=== PATIENT | female | born 1955 | race African-American/Black ===

== ENCOUNTER 2021-02-07 05:36 | Inpatient (IN) ==
[2021-02-02 15:41] LABS: Basophils # 0.1 10*3/uL (0.0-0.2); Basophils % 0.5 % (0.0-0.8); Eosinophils # 0.1 10*3/uL (0.0-0.87); Eosinophils % 0.6 % (0.00-10.9); Hematocrit 42.3 VOL% (35.7-47.0); Hemoglobin 13.7 GM/DL (12.0-16.0); Immature Granulocytes % 0.4 %; Immature Granulocytes Absolute 0.04 #; Lymphocytes # 1.3 10*3/uL (1.4-4.0); Lymphocytes % 12.4 % (21.3-54.2); Mean Corpuscular HGB Conc 32.4 GM/DL (32-36); Mean Corpuscular Volume 83.9 FL (87-102); Mean Platelet Volume 11.4 FL (9.6-12.0); Monocytes % 7.4 % (1.7-12.7); Neutrophils % 78.7 % (38.7-73.9); Platelet Count 265 T/CUMM (130-400); Red Blood Count 5.04 MC/CUMM (3.8-5.5); Red Cell Distribution Width 14.6 % (9.3-17.3); White Blood Count 10.7 T/CUMM (4-12)
[2021-02-02 15:45] LABS: Albumin 3.9 G/DL (3.4-5.0); Bilirubin,Total 0.8 MG/DL (0.20-1.00); Calcium 10.2 MG/DL (8.5-10.1); Osmolality,Calculated 277.5 MOS/KG (273-304); Potassium 3.7 MMOL/L (3.5-5.1); Total Protein 7.9 G/DL (6.4-8.2)
[2021-02-02 15:52] LABS: PT Patient Result 10.8 SECS (10.5-12.0); Partial Thromboplastin Time 26.2 SECS (23.9-33.8)
[2021-02-02 16:47] LABS: Bilirubin,Urine Negative (Negative); Blood, Urine Negative (Negative); Glucose,Urine (UA) Negative (Negative); Hyaline Casts,Urine 7 /LPF (0-3); Ketones,Urine Negative (Negative); Mucus,Urine Occasional /LPF (Occasional); Nitrite,Urine Negative (Negative); Protein,Urine Negative; RBC,Urine 1 /HPF (0-4); Squamous Epithelial Cell,Urine Occasional /HPF (0-10); Urine Appearance CLEAR (Clear); Urine Color Yellow (Yellow); Urine Specific Gravity 1.013 (1.001-1.035); Urine Urobilinogen < 2.0 EU/DL (0.2-1.0)
[2021-02-07] MEDS ORDERED: VANCOMYCIN INJ 1,000 MG in SODIUM CHLORIDE 0.9% 250 ML IV ONE (06:00)
[2021-02-07] MEDS ORDERED: FAMOTIDINE 20 MG TABLET PO ONE (06:33)
[2021-02-07] MEDS ORDERED: ACETAMINOPHEN 500 MG TABLET PO ONE ×2 (06:33→06:45)
[2021-02-07] MEDS ORDERED: GABAPENTIN 400 MG CAPSULE PO ONE ×2 (06:33→06:45)
[2021-02-07] MEDS ORDERED: DIAZEPAM 5 MG TABLET PO ONE (06:45)
[2021-02-07] MEDS ORDERED: LIDOCAINE 2% 5 ML VIAL ONE (07:03)
[2021-02-07] MEDS ORDERED: DEXMEDETOMIDINE 200 MCG/2 ML VIAL ONE (07:03)
[2021-02-07] MEDS ORDERED: GLYCOPYRROLATE 0.4 MG/2 ML VIAL ONE ×2 (07:03→09:46)
[2021-02-07] MEDS ORDERED: ONDANSETRON 4 MG/2 ML VIAL ONE (07:03)
[2021-02-07] MEDS ORDERED: propofoL 200 MG/20 ML VIAL IV ONE (07:03)
[2021-02-07] MEDS ORDERED: DEXAMETHASONE 4 MG/1 ML VIAL ONE (07:03)
[2021-02-07] MEDS ORDERED: ROCURONIUM 50 MG/5 ML VIAL IV ONE (07:04)
[2021-02-07] MEDS ORDERED: SUCCINYLCHOLINE 200 MG/10 ML VIAL ONE (07:04)
[2021-02-07] MEDS ORDERED: KETAMINE 500 MG/10 ML VIAL ONE (07:04)
[2021-02-07] MEDS ORDERED: BUPIVACAINE 0.5% 50 ML VIAL ONE (07:11)
[2021-02-07] MEDS: LACTATED RINGERS 1,000 ML IV SCH ×2 (07:20→10:47)
[2021-02-07] MEDS ORDERED: BISACODYL 10 MG SUPP RECTAL PRN (08:35)
[2021-02-07] MEDS ORDERED: TEMAZEPAM 7.5 MG CAPSULE PO PRN (08:35)
[2021-02-07] MEDS ORDERED: MORPHINE 2 MG/1 ML SYRINGE IV PRN ×2 (08:35→12:33)
[2021-02-07] MEDS ORDERED: PROMETHAZINE 25 MG/1 ML VIAL IM PRN (08:35)
[2021-02-07] MEDS ORDERED: diphenhydrAMINE CAP 25 MG CAPSULE PO PRN (08:35)
[2021-02-07] MEDS ORDERED: LACTULOSE 20 GM/30 ML UDCUP PO PRN (08:35)
[2021-02-07] MEDS ORDERED: MAGNESIUM HYDROXIDE SUSP 30 ML UDCUP PO PRN (08:35)
[2021-02-07] MEDS ORDERED: TRANEXAMIC ACID 1,000 MG/10 ML VIAL ONE ×2 (08:57→09:55)
[2021-02-07] MEDS ORDERED: NEOSTIGMINE 10 MG/10 ML VIAL ONE (09:46)
[2021-02-07] MEDS ORDERED: SEVOFLURANE 1 UNIT/15 MINUTE INH ONE (09:46)
[2021-02-07] MEDS ORDERED: PHENYLEPHRINE 1 MG/10 ML SYRINGE IV ONE (09:47)
[2021-02-07] MEDS ORDERED: SODIUM CHLORIDE 0.9% 1,000 ML IV ONE (09:54)
[2021-02-07 10:15] LABS: Bilirubin,Urine Negative (Negative); Blood, Urine Negative (Negative); Glucose,Urine (UA) Negative (Negative); Ketones,Urine Negative (Negative); Mucus,Urine Occasional /LPF (Occasional); Nitrite,Urine Negative (Negative); Protein,Urine Negative; RBC,Urine 1 /HPF (0-4); Squamous Epithelial Cell,Urine Occasional /HPF (0-10); Urine Appearance CLEAR (Clear); Urine Color Straw (Yellow); Urine Specific Gravity 1.009 (1.001-1.035); Urine Urobilinogen < 2.0 EU/DL (0.2-1.0)
[2021-02-07] MEDS ORDERED: ONDANSETRON 4 MG/2 ML VIAL IV PRN (10:17)
[2021-02-07] MEDS: HYDROmorphone 2 MG/1 ML VIAL IV PRN ×4 (10:22→10:50)
[2021-02-07] MEDS: ceFAZolin 2,000 MG/50 ML DUPLEX IV SCH ×2 (14:27→22:17)
[2021-02-07] MEDS: ONDANSETRON 4 MG/2 ML VIAL IV PRN ×2 (15:42→20:35)
[2021-02-07] MEDS: DOCUSATE SODIUM 100 MG CAPSULE PO SCH (20:34)
[2021-02-07] MEDS: FONDAPARINUX 2.5 MG/0.5 ML SYRINGE SUBCUT SCH (20:34)
[2021-02-08] MEDS: LEVOTHYROXINE 75 MCG TABLET PO SCH (05:45)
[2021-02-08 05:52] LABS: Basophils % 0.1 % (0.0-0.8); Hemoglobin 11.2 GM/DL (12.0-16.0); Immature Granulocytes % 0.5 %; Immature Granulocytes Absolute 0.09 #; Lymphocytes # 0.8 10*3/uL (1.4-4.0); Lymphocytes % 4.8 % (21.3-54.2); Mean Corpuscular Volume 83.7 FL (87-102); Mean Platelet Volume 11.1 FL (9.6-12.0); Monocytes % 8.2 % (1.7-12.7); Neutrophils % 86.4 % (38.7-73.9); Platelet Count 224 T/CUMM (130-400); Red Blood Count 4.18 MC/CUMM (3.8-5.5); Red Cell Distribution Width 14.6 % (9.3-17.3); White Blood Count 17.4 T/CUMM (4-12)
[2021-02-08 06:01] LABS: Calcium 8.4 MG/DL (8.5-10.1); Osmolality,Calculated 277.5 MOS/KG (273-304); Potassium 3.5 MMOL/L (3.5-5.1)
[2021-02-08 06:17] LABS: Hypochromasia 1+; Lymphocytes 7 % (20-55); Microcytosis 1+; Platelet Estimate Adequate; Segmented Neutrophils 86 % (50-85); Total Cells Counted 100
[2021-02-08] MEDS: ONDANSETRON 4 MG/2 ML VIAL IV PRN (09:30)
[2021-02-08] MEDS: ATORVASTATIN 20 MG TABLET PO SCH (09:31)
[2021-02-08] MEDS: DOCUSATE SODIUM 100 MG CAPSULE PO SCH ×2 (09:31→20:54)
[2021-02-08] MEDS: CHLORTHALIDONE 25 MG TABLET PO SCH (09:31)
[2021-02-08] MEDS: amLODIPine 10 MG TABLET PO SCH (09:31)
[2021-02-08] MEDS: DICLOFENAC SODIUM 75 MG TABLET PO SCH (09:31)
[2021-02-08] MEDS: LOSARTAN 50 MG TABLET PO SCH (10:02)
[2021-02-08] MEDS: FONDAPARINUX 2.5 MG/0.5 ML SYRINGE SUBCUT SCH (20:54)
[2021-02-09] MEDS: LEVOTHYROXINE 75 MCG TABLET PO SCH (05:31)
[2021-02-09] MEDS: LOSARTAN 50 MG TABLET PO SCH (09:21)
[2021-02-09] MEDS: ATORVASTATIN 20 MG TABLET PO SCH (09:22)
[2021-02-09] MEDS: DOCUSATE SODIUM 100 MG CAPSULE PO SCH ×2 (09:22→20:34)
[2021-02-09] MEDS: DICLOFENAC SODIUM 75 MG TABLET PO SCH (09:22)
[2021-02-09] MEDS: amLODIPine 10 MG TABLET PO SCH (09:22)
[2021-02-09] MEDS: CHLORTHALIDONE 25 MG TABLET PO SCH (09:22)
[2021-02-09] MEDS: FONDAPARINUX 2.5 MG/0.5 ML SYRINGE SUBCUT SCH (20:34)
[2021-02-10] MEDS: LEVOTHYROXINE 75 MCG TABLET PO SCH (06:06)
[2021-02-10] MEDS: ATORVASTATIN 20 MG TABLET PO SCH (08:11)
[2021-02-10] MEDS: LOSARTAN 50 MG TABLET PO SCH (08:11)
[2021-02-10] MEDS: CHLORTHALIDONE 25 MG TABLET PO SCH (08:12)
[2021-02-10] MEDS: DICLOFENAC SODIUM 75 MG TABLET PO SCH (08:12)
[2021-02-10] MEDS: amLODIPine 10 MG TABLET PO SCH (08:12)
[2021-02-10] MEDS: DOCUSATE SODIUM 100 MG CAPSULE PO SCH (08:12)
[2021-02-10 11:10] VITALS: BP 112/58
== END 2021-02-10 13:00 | disposition swing bed (61) | DRG 470 ==
LOC: N.OR 05:36 → N.SDSINP 05:38 → N.3E 11:28
PROVIDERS: ADMIT Orthopaedic Surgery; ATTEND Orthopaedic Surgery